=== PATIENT | female | born 1985 | race Caucasian/White ===

== ENCOUNTER → 2019-06-29 | Day surgery (SDC) | payer OTHER ==
[~2019-06-29] MED LIST: Bupivacaine 0.25% EPI 200,000* 30 ML SDV ONE; Dexamethasone IV* 4 MG/ML 1 ML (4 MG) ONE; DiMENhydriNATE IV* 50 MG/ML VIAL IV PUSH PRN; Ketorolac INJ* 30 MG/ML 1 ML VIAL ONE; Lidocaine 2% PF * 5 ML VIAL ONE; Midazolam* 1 MG/ML 2 ML VIAL (2 MG) ONE; Naloxone* 0.4 MG/ML 1 ML VIAL IV PRN; Ondansetron INJ* 2 MG/ML VIAL ONE; Propofol* 10 MG/ML 20 ML BTL ONE; Rocuronium* 10 MG/ML VIAL ONE; Sugammadex * 200 MG/2 ML VIAL IV PUSH ONE; ceFOXitin(*) 2 GM in NS 0.9% 100 ML* 100 ML IVPB ONE; fentaNYL* 50 MCG/ML 2 ML VIAL (100 MCG VIAL) IV PRN; fentaNYL* 50 MCG/ML 2 ML VIAL (100 MCG VIAL) ONE
--- NOTE | 2019-06-29 19:10 | ED ---
Abdominal Pain/Female - HPI Summary HPI Summary: The patient is a 33 y/o F presenting to [facility] with a chief complaint of sudden onset RLQ pain that she woke up with this morning. She reports that she went to [facility] for the pain, and it was discovered that she is experiencing appendicitis, per Abdominopelvic CT taken there. The pain is aggravated by position and palpation and alleviated by nothing. Currently, the now dull but still constant pain is rated 0/10 in severity following treatment at [facility]. She additionally c/o decreased appetite with last meal around 2130 last night. She denies any measured fever. PMhx: cholecystectomy, environmental allergies. Nonsmoker, no EtOH, no substance use. Medications and allergies reviewed. - History of Current Complaint Stated Complaint: APPENDICITIS PER EMS Time Seen by Provider: 06/29/19 19:03 Hx Obtained From: Patient Onset/Duration: Sudden Onset, Lasting Hours - starting this morning when she woke up, Still Present Timing: Constant Severity Initially: Moderate Severity Currently: Mild Pain Intensity: 0 Pain Scale Used: 0-10 Numeric Location: Discrete At: RLQ Radiates: No Character: Dull Aggravating Factor(s): Other: - position, palpation Alleviating Factor(s): Nothing Associated Signs and Symptoms: Positive: Decreased Appetite. Negative: Fever Allergies/Adverse Reactions: Allergies Allergy/AdvReac Type Severity Reaction Status Date / Time latex Allergy Mild red bumps Verified 06/29/19 19:08 PMH/Surg Hx/FS Hx/Imm Hx Endocrine/Hematology History: Denies: Hx Diabetes Cardiovascular History: Denies: Hx Hypertension Respiratory History: Reports: Hx Seasonal Allergies - environmental GI History: Reports: Hx Gall Bladder Disease - cholecystectomy Sensory History: Denies: Hx Legally Blind Opthamlomology History: Denies: Hx Legally Blind EENT History: Denies: Hx Deafness - Surgical History Surgical History: Yes Surgery Procedure, Year, and Place: cholecystectomy Infectious Disease History: No Infectious Disease History: Denies: Traveled Outside the [place] in Last 30 Days - Family History Known Family History: Negative: Renal Disease - Social History Alcohol Use: None Hx Substance Use: No Substance Use Type: Reports: None Hx Tobacco Use: No Smoking Status (MU): Never Smoked Tobacco Review of Systems Negative: Fever Positive: Abdominal Pain - RLQ, Other - decreased appetite All Other Systems Reviewed And Are Negative: Yes Physical Exam - Summary Physical Exam Summary: Appearance: Well-appearing, Well-nourished, lying in bed comfortable Skin: Warm, dry, no obvious rash Eyes: sclera anicteric, no conjunctival pallor ENT: mucous membranes moist Neck: deferred Respiratory: No signs of respiratory distress Cardiovascular: Appears well perfused, pulses are nml Abdomen: RLQ tenderness Musculoskeletal: Moving all 4 extremities without obvious discomfort Neurological: Awake and alert, mentation is normal, speech is fluent and appropriate Psychiatric: affect is normal, does not appear anxious or depressed Triage Information Reviewed: Yes Vital Signs Reviewed: Yes Abdominal Pain Fem Course/Dx - Course Course Of Treatment: Patient is a 33 y/o F with cc of sudden onset RLQ pain with decreased appetite throughout the day and known dx of appendicitis, per Abd /Pel CT at [facility] [employer]. Upon physical exam, the patient exhibits abdominal tenderness in the RLQ. Blood work and additional imaging not ordered as patient has already had an abdominal pain workup today while at [facility]. OR already aware of the patients case when she arrived. I discussed the case with Dr. Christensen from surgery and he accepts the patient for surgical admission. Patient understands and agrees with the plan. - Diagnoses Provider Diagnoses: Acute appendicitis - Provider Notifications Discussed Care Of Patient With: Marcello Christensen - surgery Time Discussed With Above Provider: 19:10 Instructed by Provider To: Other - Dr. Christensen is aware of the patient's case , and he accepts admission for surgery tonight. Discharge ED - Sign-Out/Discharge Documenting (check all that apply): Patient Departure - Patient accepted for admission for surgery by Dr. Christensen. Patient Received Moderate/Deep Sedation with Procedure: No - Discharge Plan Condition: Good Disposition: ADMITTED TO [facility] - Billing Disposition and Condition Condition: GOOD Disposition: Admitted to [facility] - Attestation Statements Document Initiated by Scribe: Yes Documenting Scribe: Yuridia Gordon Provider For Whom Jose is Documenting (Include Credential): Dr. Kye Colunga MD Scribe Attestation: Yuridia Almeida scribed for Dr. Kye Colunga MD on 06/30/19 at 0529. Scribe Documentation Reviewed: Yes Provider Attestation: The documentation as recorded by the Yuridia romero accurately reflects the service I personally performed and the decisions made by me, Dr. Kye Colunga MD Status of Scribe Document: Viewed
--- NOTE | 2019-06-29 20:43 | HP ---
CC: [facility] HISTORY AND PHYSICAL: DATE OF ADMISSION: 06/29/19 CHIEF COMPLAINT: Right lower quadrant abdominal pain. HISTORY OF PRESENT ILLNESS: Ms. Landy Mckinney is a 33-year-old woman who woke this morning with cram py abdominal discomfort. She is presenting having her menstrual period and she was not certain if th jordin were somewhat different than her typical menstrual cramps and somewhat more severe. Over the cou rse of the morning, the pain again progressively worsened, but it became more severe in the suprapubi c and right lower quadrant area. She had some mild nausea without vomiting. She had no fevers. She had no diarrhea. She presented to the emergency room at [facility] this afternoon. There she was noted to be a febrile, however, she had an elevated white blood cell count of 16,000. test was unremarka ble and remainder of her laboratory workup was essentially normal. She underwent a CT scan of the abdomen and pelvis, which showed findings consistent with early acute appendicitis, without evidence of perforation, abscess or extraluminal air. After discussion with the nurse practitioner at [facility], she was transferred over her e to [facility] for further surgical care. PAST MEDICAL HISTORY: Unremarkable. PAST SURGICAL HISTORY: 1. section x3. 2. Laparoscopic cholecystectomy. 3. Tubal ligation. MEDICATIONS: Include Zyrtec. ALLERGIES: LATEX, but no known drug allergies. SOCIAL HISTORY: Socially, she does smoke. She has 3 young children. She works very part-time. Reyes s not use alcohol. She denies use of illicit drugs. REVIEW OF SYSTEMS: Cerebrovascular: No dizziness or visual disturbances or seizure disorder. Cardi ovascular: No chest pain, shortness of breath. Pulmonary: No wheezing, hemoptysis, or asthma. GI: No chronic abdominal discomfort. No recent weight loss. : No urgency or hematuria. Endocrine: No diabetes or thyroid disorder. PHYSICAL EXAMINATION GENERAL: She is a well-developed, well-nourished, slightly overweight female, normal attention to gr ooming. VITAL SIGNS: She is afebrile. Vital signs are stable. LUNGS: Clear to auscultation with normal respiratory effort. HEART: Regular rate and rhythm without murmurs, rubs, or gallops. ABDOMEN: Soft and slightly distended. She is obese. She has well healed low transverse incisions. She has some upper abdominal incisions, laparoscopic incisions without hernia. She had diminished b owel sounds throughout. She has tenderness in the right lower quadrant with some voluntary guarding. She has no generalized peritoneal irritations. PSYCHIATRIC: She is awake, alert, and oriented x3. She has normal judgment and insight. IMPRESSION: Acute appendicitis. PLAN: Laparoscopic appendectomy this evening. The procedure was discussed with the patient and the risks of, but not limited to, bleeding, infectio n, intraabdominal abscess formation, injury to peritoneal and retroperitoneal structures, possibility of an open procedure, staple line leak with subsequent abscess and sepsis, and the risk of anesthesi a as well as blood clots were all explained. Postoperative recovery time, some possible hospital sta y, and activity restrictions were briefly discussed. After our discussion, the patient gives her consent to proceed this evening. [id number]/[facility] #: [id number]
--- NOTE | 2019-06-29 21:22 | OP ---
Operative Report - Blank - Operative Report Date of Operation: 06/29/19 Note: OPERATIVE REPORT Pre-op: Acute appendicitis Post-Op: Same Procedure:Laparoscopic appendectomy Surgeon: MD Amparo Asst: none Anes: general with local, Dr. Martinez IVF:1 liter of crystalloid EBL:min Specimen: Appendix Drain: None Wound: 3 Findings: Acute suppurative appendicitis To PACU
[2019-06-29 22:21] VITALS: BP 118/93
--- NOTE | 2019-06-29 23:03 | OP ---
CC: [facility]. OPERATIVE REPORT: DATE OF OPERATION: 06/29/19 DATE OF : 85 SURGEON: Marcello Christensen MD MOHS SURGEON: None. ANESTHESIOLOGIST: Dr. Martinez. ANESTHESIA: General with local. PRE-OP DIAGNOSIS: Acute appendicitis. POST-OP DIAGNOSIS: Acute suppurative appendicitis. OPERATIVE PROCEDURE: Laparoscopic appendectomy. WOUND CLASSIFICATION: III. COMPLICATIONS: None. DRAINS: None. SPECIMENS: Appendix. IV FLUIDS: 1 L of crystalloid. FINDINGS: Acute suppurative appendicitis. DESCRIPTION OF PROCEDURE: Written and informed consent was obtained, the abdomen was marked with ind elible ink and preoperative antibiotics were administered. The patient was taken to the operating ro om and placed in a supine position. Sequential compression devices and a warming blanket were applied . General anesthesia was administered and the abdomen was prepped and draped in the usual sterile fa shion. Time-out verification was completed. Initially, a small transverse incision was made in the left upper quadrant in the abdomen and a 5-mm Optiview catheter port was then placed and under direct vision with a 5-mm camera, an attempt was mad e to enter the abdominal cavity. I had some difficulty traversing the peritoneum and after several a ttempts I aborted this technique and proceeded with an open cut down technique at the umbilicus. A small transverse incision was made just above the umbilicus. The midline of the peritoneal cavity was entered easily under direct vision. A 12-mm blunt port was inserted and the abdomen was insuffla toro to 15 mmHg. Under direct vision, a 5-mm port was placed in the left lower abdominal wall and a second 5-mm port w as placed in the suprapubic position. There was no evidence of purulence or fibrinous exudate in the lower abdomen. The terminal ileum and cecum were unremarkable. The appendix was identified. It was suppuratively inflamed with some fibrin along the carbajal and some what edematous, but no evidence of gangrene, perforation, or extraluminal fluid. The mesoappendix was divided sequentially with a LigaSure down to the base of the appendix, which was normal. An EndoGIA fallon load of a 45-mm stapler was used to divide the appendix at its base. The appendix was removed in an EndoCatch bag from the umbilical incision. Staple line was intact and hemostasis was assured. The right lower quadrant and pelvis were irrigate d. All ports were removed under direct vision of the camera. The umbilical fascia was closed with inter rupted 0-Vicryl suture. The skin at all 4 incision was approximated with subcuticular 4-0 Vicryl sut ure. Steri-Strips were applied. The patient tolerated the procedure well, was taken to the recovery room in stable condition. [id number]/[facility] #: [id number]
== END | disposition home or self-care (01) ==
LOC: ED 18:55 → OR 19:32
PROVIDERS: ATTEND Surgery
DX: K35.80 Unspecified acute appendicitis (principal); R10.31 Right lower quadrant pain; R11.2 Nausea with vomiting, unspecified
CPT/HCPCS: 88304; 99282; C1776; J0694; J1100; J1885; J2250; J2405; J2704; J3010